=== PATIENT | male | born 1980 | race Caucasian/White ===

== ENCOUNTER 2017-06-21 19:07 | Emergency (ER) | payer BC ==
[2017-06-21 19:22] VITALS: BMI 27.1
[2017-06-21 19:45] LABS: BILIRUBIN,URINE NEGATIVE (NEGATIVE); BLOOD/HEMOGLOBIN,URINE 2+ (NEGATIVE); GLUCOSE, URINE NEGATIVE (NEGATIVE); KETONES,URINE NEGATIVE (NEGATIVE); LEUKOCYTE ESTERASE ,URINE 2+ (NEGATIVE); NITRITES,URINE NEGATIVE (NEGATIVE); PROTEIN,URINE 1+ (NEGATIVE); UROBILINOGEN,URINE NORMAL (NORMAL)
[2017-06-21 19:56] LABS: APPEARANCE,URINE SLIGHTLY HAZY (CLEAR); BACTERIA,URINE TRACE /HPF (NEGATIVE); COLOR,URINE YELLOW (YELLOW); SQUAMOUS EPITHELIAL CELL,UR NEGATIVE /HPF (NEGATIVE)
--- NOTE | 2017-06-21 19:58 | DR.GENAD ---
HPI - PCP Primary Care Physician: NFPat - HPI Comment HPI Comment: RECENT UNPRODECTED SEX. - Complaint/Symptoms Chief Complaint Doctors Comments: PENILE DISCHARGE, DYSURIA TIMES 5 DAYS. Chief Complaint:: PT STATES" ABOUT 3 YEARS AGO I HAD A STD AND NOW I HAVE THE SAME SX AND I'M HAVING BAD PAIN AND DISCHARGE. IT'S HUSSAIN LIKE A RUNNY NOSE" - Nurses notes reviewed Nurses Notes Review: Yes - Source History Provided: Patient - Mode of Arrival Mode of Arrival: Ambulatory - Timing Onset of Chief Complaint: 06/16/17 Came on: Suddenly - Duration Duration: Constant Duration: Days - Severity Severity: Moderate PMH - PMH Past Medical History: No Past Surgical History: No - Family History History of Family Medical Conditions: Yes Family Medical History: Diabetes Mellitus, Hypertension - Social History Type of Tobacco Use: Cigarettes Alcohol Use: None Do you use any recreational Drugs:: No Lives With: Family Lives Where: Home - infectious screening In the last 2 months have you had wt loss of >10#?: NO Have you had fever, night sweats or hemotysis?: No Have you traveled outside the country in the last 6 months?: No Isolation: Standard ROS - Review of Systems Constitutional: No Symptoms Reported Eyes: No Symptoms Reported ENTM: No Symptoms Reported Respiratoy: No Symptoms Reported Cardiovascular: No Symptoms Reported Gastrointestinal/Abdominal: No Symptoms Reported Genitourinary: Discharge, Dysuria Neurological: No Symptoms Reported Musculoskeletal: No Symptoms Reported Integumentary: No Symptoms Reported Hematologic/Lymphatic: No Symptoms Reported Endocrine: No Symptoms Reported All Other Systems: Reviewed and Negative PE - Vital Signs Vitals: Temperature 99.1 F Pulse Rate [Left] 80 Pulse Rate 94 Respiratory Rate 18 Blood Pressure [Right Arm] 121/68 Blood Pressure 126/76 O2 Sat by Pulse Oximetry 99 - General Limitations: No Limitations General Appearance: Alert - Head Head Exam: Normal Inspection - Eyes Eye exam: Normal Appearance - ENT ENT Exam: Normal External Ear Exam External Ear Exam: Normal External Inspection TM/Canal Exam: Bilateral Normal Nose Exam: Normal Nose Exam Mouth Exam: Normal Inspection Throat Exam: Normal Inspection - Neck Neck Exam: Trachea Midline - Chest Chest Inspection: Symmetric Chest Wall Rise - Respiratory Respiratory Exam: Normal Lung Sounds Bilat Respiratory Exam: Bilateral Clear to Auscultation - Cardiovascular Cardiovascular Exam: Regular Rate, Normal Rhythm, Normal Heart Sounds - Abdominal Exam Abdominal Exam: Normal Bowel Sounds, Soft, Other (URETHRAL DISCHARGE). negative : Tenderness - Extremities Extremities Exam: Normal Inspection - Back Back Exam: Normal Inspection - Neurologic Neurological Exam: Alert, Oriented X3 - Psychiatric Psychiatric Exam: Normal Affect, Normal Mood - Skin Skin Exam: Normal Color MDM - Additional Information Additional Information Obtained From: Family - Differential Diagnosis Differential Diagnosis: UTI, URETHRAL DISCHARGE. Course - Treatment Treatment: SEE ORDERS. IM ROCEPHIN AND ZITHROMAX IN ED. - Education/Counseling Education/Counseling: Patient, Education Educated On: Treatment, Diagnosis, Needs for Follow Up ROR - Labs Reviewed Laboratory Results Reviewed?: Yes Laboratory: 06/21/17 20:13 Urine,Clean Catch Urine Culture - Preliminary Specimen Type Random urine 06/21/17 19:37 Urine Color Yellow (YELLOW) 06/21/17 19:37 Urine Appearance Slightly hazy (CLEAR) 06/21/17 19:37 Urine pH 6.0 (5.0 - 8.0) 06/21/17 19:37 Ur Specific [place] 1.020 (1.000-1.030) 06/21/17 19:37 Urine Protein 1+ (NEGATIVE) 06/21/17 19:37 Urine Glucose (UA) Negative (NEGATIVE) 06/21/17 19:37 Urine Ketones Negative (NEGATIVE) 06/21/17 19:37 Urine Occult Blood 2+ (NEGATIVE) 06/21/17 19:37 Urine Nitrite Negative (NEGATIVE) 06/21/17 19:37 Urine Bilirubin Negative (NEGATIVE) 06/21/17 19:37 Urine Urobilinogen Normal (NORMAL) 06/21/17 19:37 Ur Leukocyte Esterase 2+ (NEGATIVE) 06/21/17 19:37 Urine RBC 3-5 /HPF (NEGATIVE) 06/21/17 19:37 Urine WBC 12-16 /HPF (NEGATIVE) 06/21/17 19:37 Ur Squamous Epith Cells Negative /HPF (NEGATIVE) 06/21/17 19:37 Urine Bacteria Trace /HPF (NEGATIVE) 06/21/17 19:37 Ur Culture Indicated? No/not indicated 06/21/17 19:37 Ur C. trach DNA (PCR) Not detected (NOT DETECT) 06/21/17 19:37 U N.gonorrhoeae DNA PCR Detected (NOT DETECT) A 06/21/17 19:37 - Diagnosis Discharge Problem: UTI (urinary tract infection), Exposure to STD - Discharge Plan Disposition: HOME, SELF-CARE Condition: Stable Prescriptions: Ciprofloxacin HCl [CIPRO 500 MG TAB *] 500 mg PO Q12H #20 tab - Follow ups/Referrals Follow ups/Referrals: [facility],None [Primary Care Provider] - 3 days - Instructions Instructions: Urinary Tract Infection, Adult, Gonorrhea Additional Instructions: RETURN TO ED IF WORSE.
[2017-06-21] MEDS ORDERED: ROCEPHIN VIAL 250 MG IM ONE (20:15)
[2017-06-21] MEDS ORDERED: ZITHROMAX TAB 250 MG PO ONE ×2 (20:15→20:16)
[2017-06-21] MEDS ORDERED: ROCEPHIN VIAL 250 MG ONE (20:16)
[2017-06-21 21:17] LABS: CHLAMYDIA TRACH URINE NOT DETECTED (NOT DETECT)
[2017-06-21 21:49] VITALS: BP 121/68
== END 2017-06-21 21:26 | disposition home or self-care (01) ==
LOC: ER 19:28
DX: N39.0 Urinary tract infection, site not specified (principal); Z20.2 Contact with and (suspected) exposure to infections with a predominantly sexual mode of transmission
CPT/HCPCS: 81001; 87086; 87491; 87591; 96372; 99282; 99283; Q0144; J0696